=== PATIENT | male | born 1970 | race Caucasian/White ===

== ENCOUNTER 2016-12-03 19:31 | Emergency (ER) | payer OTHER ==
[~2016-12-03] VITALS: Ht 177.8 cm; Wt 79.7 kg
[2016-12-03 19:37] VITALS: Ht 177.8 cm; Wt 79.7 kg
[2016-12-03] MEDS ORDERED: VNTHFA/IN INH (20:02)
[2016-12-03 20:32] LABS: BASO % 0.7 %; BASO ABS # 0.05 K/uL (0-0.2); COMPLETE YES; EOS % 2.3 %; HEMATOCRIT 44.3 % (42-52); IG% 0.4 %; LYMPH ABS # 1.93 K/uL (1.2-3.4); MEAN CELL VOLUME 86.9 fL (80-100); MEAN CORPUSCULAR HEMOGLOBIN 29.6 pg (25-34); MEAN CORPUSCULAR HGB CONC 34.1 g/dl (32-36); MEAN PLATELET VOLUME 9.4 fL (7.4-10.4); MONO % 11.9 %; NEUT % 56.7 %; PLATELET COUNT 433 K/uL (130-400); WHITE BLOOD COUNT 6.89 K/uL (4.8-10.8)
[2016-12-03 20:50] LABS: BUN/CREATININE RATIO 18.6 (10-20); C-REACTIVE PROTEIN 6.56 mg/dl (0-0.29); CALCIUM 8.5 mg/dl (8.5-10.1); CREATININE 0.74 mg/dl (0.60-1.40); POTASSIUM 3.2 mmol/L (3.5-5.1)
[2016-12-03 20:57] LABS: URINE APPEARANCE CLOUDY (CLEAR); URINE BILIRUBIN NEG (NEG); URINE COLOR DK YELLOW; URINE NITRITE NEG (NEG); URINE PH 6.5 (4.5-7.5); URINE SPECIFIC GRAVITY 1.022 (1.000-1.030); UROBILINOGEN POS (NEG); ZZUR CULT IF INDIC CLEAN CATCH NO
[2016-12-03 21:00] LABS: THYROID STIMULATING HORMONE 0.399 uIu/ml (0.300-4.500)
[2016-12-03 21:15] LABS: MANUAL MICROSCOPIC REQUIRED? NO; REVIEW REQ? NO
[2016-12-03 21:16] LABS: LYME DISEASE AB IGG POS (NEG); LYME DISEASE AB IGM POS (NEG)
[2016-12-03 21:30] LABS: ANTI-STREP O SCR: 5YRS OR > POS IU/ml (<200 IU)
[2016-12-03 21:31] LABS: ANTI-STREP O TITRE: 5YR OR > 400 IU/ml (<200 IU)
[2016-12-03] MEDS ORDERED: POTASSIUM CHLORIDE 10 MEQ TABCR PO STA (22:35)
[2016-12-03] MEDS ORDERED: DXY100 PO (22:37)
[2016-12-03] MEDS ORDERED: DOXYCYCLINE HYCLATE 100 MG CAP PO ONE (22:45)
[2016-12-03 22:57] VITALS: BP 154/92; PULSE 86; TEMP 37; O2SAT 97
--- NOTE | 2016-12-04 02:45 | EMERGENCY ROOM VISIT NOTE ---
History Report prepared by Kristin: Aimee Acuan Under the Supervision of: Dr. Neil Castle M.D. First contact with patient: 19:43 Chief Complaint: RASH Stated Complaint: RASH History of Present Illness The patient is a 46 year old male who presents to the Emergency Room with complaints of a rash beginning 2 days ago. The patient noticed spots diffusely on his trunk and his right leg. He states that a new spot formed today on his left arm. The patient was sick last week with flu like symptoms, but his symptoms resolved 2 days ago. The patient states that he took ibuprofen and acetaminophen for his symptoms. He also complains of a headache, fatigue, and loss of appetite. 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 The patient denies any tick bites in the last year and bug bites recently. He states that he hunts and has been out in the story lately in [facility]. The patient states that he does not believe that he has been exposed to any chemicals or poison regis. He denies any recent travel. The patient states that he has dogs, cats, and chickens at home. Pt denies LOC, fevers, chills, diaphoresis, visual changes, neck pain, chest pain, breathing difficulties, nausea, vomiting, abdominal pain, back pain, melena, hematochezia , urinary symptoms, numbness, weakness, lymphadenopathy, rash, or other complaints. Source of History: patient Onset: 2 days ago Position: arm (left), leg (right), other (trunk ) Quality: other (rash ) Associated Symptoms: + headache, + fatigue Note: additional symptom: loss of appetite Review of Systems See HPI for pertinent positives and negatives. A total of ten systems were reviewed and were otherwise negative. Past Medical & Surgical Medical Problems: (1) Asthma (2) ORIF elbow fracture Surgical Problems: (1) S/P hernia repair (2) [place] teeth extracted Family History Cancer Gallbladder disease Hypertension Kidney stones Social History Smoking Status: Former Smoker Alcohol Use: occasionally Current/Historical Medications Scheduled Doxycycline Hyclate (Doxycycline Hyclate), 100 MG PO BID Scheduled PRN Albuterol Hfa (Ventolin Hfa), 2-4 PUFFS INH Q6H PRN for SOB/Wheezing Allergies Coded Allergies: No Known Allergies (Unverified , 12/03/16) Physical Exam Vital Signs Date Time Temp Pulse Resp B/P (MAP) Pulse Ox O2 Delivery O2 Flow Rate FiO2 12/03/16 22:57 37.0 86 20 154/92 97 12/03/16 22:00 37.1 84 16 148/90 97 12/03/16 19:37 37.1 90 18 149/102 94 Room Air Physical Exam GENERAL: Awake, alert, well-appearing, in no distress HENT: Normocephalic, atraumatic. Oropharynx unremarkable. EYES: Normal conjunctiva. Sclera non-icteric. NECK: Supple. No nuchal rigidity. FROM. No JVD. RESPIRATORY: Clear to auscultation. CARDIAC: Regular rate, normal rhythm. Extremities warm and well perfused. Pulses equal. ABDOMEN: Soft, non-distended. No tenderness to palpation. No rebound or guarding. No masses. RECTAL: Deferred. MUSCULOSKELETAL: Chest examination reveals no tenderness. The back is symmetrical on inspection without obvious abnormality. There is no CVA tenderness to palpation. No joint edema. LOWER EXTREMITIES: Calves are equal size bilaterally and non-tender. No edema. No discoloration. NEURO: Normal sensorium. No sensory or motor deficits noted. SKIN: Scattered erythematous blanching round patches on trunk and upper extremities that have a target like appearance. No blistering. No petechiae. No purpura Medical Decision & Procedures Laboratory Results 12/03/16 20:15 Red Blood Count 5.10, Mean Corpuscular Volume 86.9, Mean Corpuscular Hemoglobin 29.6, Mean Corpuscular Hemoglobin Concent 34.1, Mean Platelet Volume 9.4, Neutrophils (%) (Auto) 56.7, Lymphocytes (%) (Auto) 28.0, Monocytes (%) (Auto) 11.9, Eosinophils (%) (Auto) 2.3, Basophils (%) (Auto) 0.7, Neutrophils # (Auto ) 3.90, Lymphocytes # (Auto) 1.93, Monocytes # (Auto) 0.82, Eosinophils # (Auto ) 0.16, Basophils # (Auto) 0.05 12/03/16 20:15 Test 12/03/16 20:10 12/03/16 20:15 Urine Color DK YELLOW Urine Appearance CLOUDY (CLEAR) Urine pH 6.5 (4.5-7.5) Urine Specific [place] 1.022 (1.000-1.030) Urine Protein NEG (NEG) Urine Glucose (UA) NEG (NEG) Urine Ketones NEG (NEG) Urine Occult Blood NEG (NEG) Urine Nitrite NEG (NEG) Urine Bilirubin NEG (NEG) Urine Urobilinogen POS (NEG) Urine Leukocyte Esterase NEG (NEG) Urine WBC (Auto) 1-5 /hpf (0-5) Urine RBC (Auto) 0-4 /hpf (0-4) Urine Hyaline Casts (Auto) 1-5 /lpf (0-5) Urine Epithelial Cells (Auto) 10-20 /lpf (0-5) Urine Bacteria (Auto) NEG (NEG) White Blood Count 6.89 K/uL (4.8-10.8) Red Blood Count 5.10 M/uL (4.7-6.1) Hemoglobin 15.1 g/dL (14.0-18.0) Hematocrit 44.3 % (42-52) Mean Corpuscular Volume 86.9 fL (80-100) Mean Corpuscular Hemoglobin 29.6 pg (25-34) Mean Corpuscular Hemoglobin Concent 34.1 g/dl (32-36) Platelet Count 433 K/uL (130-400) Mean Platelet Volume 9.4 fL (7.4-10.4) Neutrophils (%) (Auto) 56.7 % Lymphocytes (%) (Auto) 28.0 % Monocytes (%) (Auto) 11.9 % Eosinophils (%) (Auto) 2.3 % Basophils (%) (Auto) 0.7 % Neutrophils # (Auto) 3.90 K/uL (1.4-6.5) Lymphocytes # (Auto) 1.93 K/uL (1.2-3.4) Monocytes # (Auto) 0.82 K/uL (0.11-0.59) Eosinophils # (Auto) 0.16 K/uL (0-0.5) Basophils # (Auto) 0.05 K/uL (0-0.2) RDW Standard Deviation 40.2 fL (36.4-46.3) RDW Coefficient of Variation 12.4 % (11.5-14.5) Immature Granulocyte % (Auto) 0.4 % Immature Granulocyte # (Auto) 0.03 K/uL (0.00-0.02) Erythrocyte Sedimentation Rate 42 mm/hr (0-14) Anion Gap 8.0 mmol/L (3-11) Est Creatinine Clear Calc Drug Dose 128.8 ml/min Estimated GFR () 128.2 Estimated GFR (Non- 110.6 BUN/Creatinine Ratio 18.6 (10-20) Calcium Level 8.5 mg/dl (8.5-10.1) Total Bilirubin 0.6 mg/dl (0.2-1) Direct Bilirubin 0.2 mg/dl (0-0.2) Aspartate Amino Transf (AST/SGOT) 147 U/L (15-37) Alanine Aminotransferase (ALT/SGPT) 237 U/L (12-78) Alkaline Phosphatase 465 U/L (45-117) C-Reactive Protein 6.56 mg/dl (0-0.29) Total Protein 6.8 gm/dl (6.4-8.2) Albumin 3.1 gm/dl (3.4-5.0) Thyroid Stimulating Hormone (TSH) 0.399 uIu/ml (0.300-4.500) Lyme Disease IgG Antibody POS (NEG) Anti-Streptolysin O Antibody Screen POS IU/ml (<200 IU) Anti-Streptolysin O Antibody Titer 400 IU/ml (<200 IU) Laboratory results reviewed by me Medications Administered Medications (Trade) Dose Ordered Sig/Delfina Route Start Time Stop Time Status Last Admin Dose Admin Potassium Chloride (Klor-Con M10) 40 meq NOW STAT PO 12/03/16 22:35 12/03/16 22:37 DC 12/03/16 22:43 40 MEQ Doxycycline Hyclate (Vibramycin Cap) 200 mg ONE ONCE PO 12/03/16 22:45 12/03/16 22:46 DC 12/03/16 22:43 200 MG ED Course 1946: The patient was evaluated in room C10. A complete history and physical exam was performed. 2243: I updated the patient and went over his lab results. 2244: Ordered Doxycycline Hyclate 200 mg PO. 2249: I reevaluated the patient. Discussed results and discharge instructions: He verbalized understanding and agreement. The patient is ready for discharge. Medical Decision Medication Reconciliation: I attest that I have personally reviewed the patient' s current medication list Blood pressure screening: Patient was found to have an elevated blood pressure and was referred to their primary doctor for recheck and further treatment. Triage Nursing notes reviewed. The patient's presentation and history were concerning for a rash and flulike symptoms Etiologies such as viral syndrome, Lyme disease, erythema multiforme, urinary tract infection, sepsis, bacteremia, as well as others were entertained. The patient was evaluated. His rash seemed to be consistent with disseminated Lyme. He notes his flulike symptoms were actually getting better. The patient had blood work obtained. He had an unremarkable CBC. His chemistry panel revealed mild hypokalemia. This was corrected. The patient had a mild elevation of his ESR. ASO was equivocally elevated however the patient's Lyme titer did come back positive. The patient does not have a sore throat or pharyngitis at this time. If He worsens in any way he will be back. Given the Lyme test and his disseminated erythema migrans the patient will need to be treated for Lyme disease. The patient was counseled on this. Doxycycline was initiated. Prescription was sent to his pharmacy. He will need close follow- up as an outpatient. The patient's liver function studies were mildly elevated. He was counseled on this. This will also need to be rechecked. By the evaluation outlined above other emergent etiologies such as those listed in the differential, as well as others, were deemed relatively unlikely. The patient was educated about the findings as listed above. All questions were answered and the patient was pleased with the treatment. Return instructions were outlined and the patient was discharged in stable condition. The patient was referred to his PCP for follow-up for a recheck of the current condition. Impression Primary Impression: Disseminated Lyme disease Additional Impression: Elevated LFTs Scribe Attestation The scribe's documentation has been prepared under my direction and personally reviewed by me in its entirety. I confirm that the note above accurately reflects all work, treatment, procedures, and medical decision making performed by me. Departure Information Dispostion Home / Self-Care Prescriptions Doxycycline Hyclate (Doxycycline Hyclate) 100 Mg Cap 100 MG PO BID, #40 CAP Prov: Neil Castle MD 12/03/16 Referrals No Doctor, Assigned (PCP) Forms HOME CARE DOCUMENTATION FORM, IMPORTANT VISIT INFORMATION, WORK / SCHOOL INSTRUCTIONS Patient Instructions ED Lyme Disease, My [facility] Additional Instructions Doxycycline 100mg: Take one pill twice daily for 21 days for your infection. Take with food, but avoid dairy. Avoid prolonged sun exposure since this medication makes you temporarily more susceptible to sunburns. All antibiotics can cause diarrhea. If this occurs and you feel worse or it does not resolve in 1-2 days follow up with your doctor or return to the Emergency Department as this could be signs of serious underlying problems. Any medication can cause an allergic reaction, stop the pills immediately and return to the ER for rash, hives, breathing difficulties, or swelling. Ibuprofen(Motrin, Advil) may be used for fever or pain. Use 600mg every six hours as needed. Take with food. Avoid using more than 2400mg in a 24 hour period. Do not use 2400mg per day for more than three consecutive days without physician direction. Prolonged inappropriate use can lead to stomach upset or ulcers. Rest and drink plenty of fluids. Avoid alcohol or Tylenol containing products. Follow-up to primary physician this week. A recheck of your blood pressure, potassium and of your liver functions is necessary. Return to the ER for headache, passing out, difficulty breathing, fevers, vomiting, worsening of your condition, or as needed. Problem Qualifiers
[2016-12-08 08:33] LABS: 18KDIGG BAND NONREACTIVE (NONREACTIVE); 23KDIGG BAND REACTIVE (NONREACTIVE); 23KDIGM BAND REACTIVE (NONREACTIVE); 28KDIGG BAND NONREACTIVE (NONREACTIVE); 30KDIGG BAND NONREACTIVE (NONREACTIVE); 39KDIGG BAND NONREACTIVE (NONREACTIVE); 39KDIGM BAND REACTIVE (NONREACTIVE); 41KDIGG BAND REACTIVE (NONREACTIVE); 41KDIGM BAND REACTIVE (NONREACTIVE); 45KDIGG BAND REACTIVE (NONREACTIVE); 58KDIGG BAND NONREACTIVE (NONREACTIVE); 66KDIGG BAND REACTIVE (NONREACTIVE); 93KDIGG BAND NONREACTIVE (NONREACTIVE)
== END 2016-12-03 22:59 | disposition home or self-care (01) ==
LOC: C.EDB 19:33 → C.EDC 22:59
DX: A69.20 Lyme disease, unspecified (principal); R94.5 Abnormal results of liver function studies; R51 Headache; R53.83 Other fatigue; R63.0 Anorexia; J45.909 Unspecified asthma, uncomplicated; Z87.828 Personal history of other (healed) physical injury and trauma; Z87.891 Personal history of nicotine dependence; Z82.49 Family history of ischemic heart disease and other diseases of the circulatory system; Z83.79 Family history of other diseases of the digestive system; Z84.1 Family history of disorders of kidney and ureter